=== PATIENT | female | born 1960 | race Caucasian/White ===

== ENCOUNTER 2025-05-04 04:30 | Emergency (ER) | payer MEDICARE ==
[~2025-05-04] VITALS: Ht 167.6 cm; Wt 79.8 kg
[2025-05-04 04:33] VITALS: BP 128/65; PULSE 64; RESP 16; TEMP 98.1; O2SAT 98
--- NOTE | 2025-05-04 05:24 | Physician Documentation ---
History of Present Illness ~ Chief Complaint: Ankle pain Stated Complaint: ANKLE PAIN Time Seen by MD: 05:23 HPI 65-year-old female, overall healthy, who presents with left ankle pain. She tells me that she was getting out of her house, and stepped wrong on a stair, and thinks that she twisted her ankle or landed wrong on it. She felt a pop and immediately had significant pain in the lateral ankle. No other associated injuries. She did take some ibuprofen. She had difficulty walking on it due to the pain. No tingling or numbness. No pain in the leg or knee. No lower foot pain. No history of ankle fracture in the past. Tetanus witin 5 years: Yes Medication Reconciliation Allergies: Coded Allergies: Penicillins (Verified Allergy, Mild, 05/04/25) Review of Systems Musculoskeletal: Reports: joint pain, joint swelling Physical Exam Vital Signs: Temperature: 98.1, Source: Oral, Heart Rate: 64, Respiratory Rate: 16, BP: 128/65, Pulse Oximetry: 98, Weight: 79.800 Physical Exam General: This is a healthy and pleasant middle-aged woman, at bedside, both of them were making jokes and laughing HEENT: Atraumatic, oropharynx is moist Heart: Regular rate and rhythm, normal-appearing peripheral perfusion including to the left foot Lungs: normal work of breathing, normal oxygen saturation on room air Extremities: Warm and well-perfused Lower extremity: The patient has focal tenderness to palpation over the distal fibula with some mild swelling and bruising to this region. No tenderness on palpation of the medial malleolus, tibia, or bones of the forefoot. Limited range of motion in the ankle due to pain. Normal sensation to light touch in the foot. Neuro: Alert and oriented Psychiatric: Calm and cooperative with exam Progress Results/Orders Results/Orders Orders - ANEESH LI MD, Complete(3vw Min) (05/04/25 04:55) Completed Orders - ANEESH LI MD, Complete(3vw Min) (05/04/25 04:55) Vital Signs 05/04/25 04:33 Temp 98.1 Pulse 64 Resp 16 B/P (MAP) 128/65 Pulse Ox 98 EKG/XRAY/CT/US/VASC/MRI Bone/Soft Tissue X-Ray (Ext.) : Additional Comment I personally reviewed the x-ray, and it shows: A distal fibular fracture, that is minimally displaced, no widening of the joint space, no tibia fracture or dislocation Medical Decision Making Ankle Diff Dx:Considerations: Include: Contusion, Fracture-fibula, Fracture- tibia, Hematoma, Sprain Additional Comment The patient presents with isolated lateral left ankle pain after an injury. Her exam is concerning for possible fracture. X-ray does show a distal fibular fracture, minimally displaced. This is likely nonsurgical. No other obvious fracture on my preliminary read. She was placed in a walking boot and given crutches. She was given home care instructions and a plan to follow up in [facility]. She was given a work note. Departure Time of Disposition: 05:41 Disposition: 01 HOME / SELF CARE / HOMELESS Impression: Primary Impression: Fibula fracture Condition: Stable Discharge Instructions: Nondisplaced Fibular Ankle Fracture Treated With Immobilization Referrals: NO PRIMARY CARE PROVIDER (PCP) Education Educated: Patient, Family Educated regarding: diagnosis, treatment, need for follow up Signature Scribe Signature: dexter Attestation: ANEESH Ram MD May 04, 2025 05:24
--- NOTE | 2025-05-04 05:42 | RADIOLOGY REPORT ---
CLINICAL INDICATION: Left ankle pain TECHNIQUE: DI ANKLE, COMPLETE(3VW MIN) Comparison: None FINDINGS/IMPRESSION: : Mildly displaced fracture of the lateral margin of the distal fibula with moderate overlying soft tis fredo swelling and mild tibiotalar effusion. Plantar and retrocalcaneal enthesopathy.
== END 2025-05-04 05:55 | disposition home or self-care (01) ==
LOC: ER 04:30
DX: S82.832A Other fracture of upper and lower end of left fibula, initial encounter for closed fracture (principal); Z88.0 Allergy status to penicillin; X50.1XXA Overexertion from prolonged static or awkward postures, initial encounter; Y93.9 Activity, unspecified; Y92.89 Other specified places as the place of occurrence of the external cause; Y99.8 Other external cause status
CPT/HCPCS: 73610; 99283; L4360